=== PATIENT | female | born 1950 | race Caucasian/White ===

== ENCOUNTER → 2018-09-28 12:23 | Outpatient (CLI) | payer MEDICARE, SELFPAY ==
--- NOTE | 2018-09-28 12:30 | BI_ITS ---
MAMMOGRAPHY - BILATERAL SCREENING REASON FOR EXAM: Female, 67 years old. Routine annual screening examination. PERTINENT HISTORY: Non-contributory. Prior right excisional breast biopsy and stereotactic breast biopsy. TECHNIQUE: Digital bilateral breast jurgen (3D mammographic acquisition) in the CC and MLO projections. 2-D mediolateral oblique (MLO) and craniocaudad (CC) views of both breasts were obtained. CAD: Full Field Digital Mammography with Computer Added Detection was performed. COMPARISON: Comparison is made with prior study dated September 08, 2017 and August 19, 2016. FINDINGS: Breast Composition: There are scattered areas of fibroglandular density. There are no dominant masses or suspicious calcifications. A tissue clip marker is seen in the deep upper slightly medial aspect of the right breast. Stable small bilateral axillary lymph nodes. No other significant abnormalities are identified. There has been no significant change since the prior study. BI/SCREENING MAMM (CAD), BILAT IMPRESSION: Stable bilateral screening mammogram. Yearly follow-up mammogram recommended. (A) ASSESSMENT CATEGORY: BIRADS Category 2: Benign. A letter regarding these results will be sent to the patient by the facility within 30 days. Approximately 10% of breast cancers are not detected by mammography. A normal mammogram should not delay biopsy of a clinically suspicious abnormality. [id number] Electronically Signed: Rio Joya MD at 13:24 EST Tel [phone], Service support ,
== END ==
PROVIDERS: Family Provider Nurse Practitioner; PCP Nurse Practitioner; Referring Provider Nurse Practitioner; Visit Provider Nurse Practitioner
DX: Z12.31 Encounter for screening mammogram for malignant neoplasm of breast (principal)
CPT/HCPCS: 77063; 77067

== ENCOUNTER → 2019-03-03 10:58 | Outpatient (CLI) | payer MEDICARE, SELFPAY ==
--- NOTE | 2019-03-03 11:02 | BD_ITS ---
STUDY: DUAL ENERGY X-RAY ABSORPTIOMETRY / DXA REASON FOR EXAM: Female, 68 years old. The patient is postmenopausal. Loss of height. TECHNIQUE: Bone Mineral Density (BMD) measurements of lumbar spine and bilateral hips were obtained. COMPARISON: Comparison is made with prior study dated February 13, 2017. FINDINGS: Lumbar Spine (L1-L4): g/cm2 (1.024) / T-score (-1.3) / Z-score (0.3) Findings are suggestive of osteopenia with a low fracture risk. Left Femur Total: g/cm2 (0.922) / T-score (-0.7) / Z-score (0.7) Left Femoral Neck: g/cm2 (0.858) / T-score (-1.3) / Z-score (0.3) Right Femur Total: g/cm2 (0.918) / T-score (-0.7) / Z-score (0.6) Right Femoral Neck: g/cm2 (0.877) / T-score (-1.2) / Z-score (0.4) The T-Scores on the most recent prior examination were: Lumbar Spine (L1-L4): There has been improvement of bone density since the previous examination. Left Femur Total: which represents a worsening of 3.2%. Right Femur Total: which represents a worsening of 1.5%. BD/Dexa Bone Density Study IMPRESSION: The patient is considered osteopenic as outlined below according to World Carlos Organization (WHO) criteria with a low fracture risk. There has been worsening of bone density since the previous examination. Reference Information: The T-score is the number of standard deviations above or below the standard which is normal for young adults at their peak bone mineral density. The World Health Organization (WHO) interprets the T-scores as follows: Above -1 Normal bone density Between -1 and -2.5 Osteopenia Equal to / or below -2.5 Osteoporosis As a practical clinical guideline, osteopenia may be graded as follows: Mild -1 through -1.5 Moderate -1.6 through -2.0 Severe -2.1 through -2.4 The Z-score is the number of standard deviations above or below age-matched controls. A Z-score of less than -1.5 would be considered abnormal. References: 1. NIH Osteoporosis and Related Bone Diseases http://www.osteo.org 2. International Society for Clinical Densitometry http://www.iscd.org 3. National Osteoporosis Foundation http://www.nof.org Electronically Signed: Rio Joya, at 10:01 EDT , Service support ,
== END ==
PROVIDERS: Family Provider Nurse Practitioner; PCP Nurse Practitioner; Visit Provider Nurse Practitioner
DX: Z78.0 Asymptomatic menopausal state (principal)
CPT/HCPCS: 77080

== ENCOUNTER → 2019-06-23 | Outpatient (CLI) | payer SELFPAY ==
--- NOTE | 2019-06-23 14:40 | CT_ITS ---
STUDY: CARDIAC CALCIUM SCORING - CT CHEST REASON FOR EXAM: Female, 68 years old. Family history of coronary artery disease. RADIATION DOSAGE (If Supplied By Facility): CTDIvol = ( 12.19 ) mGy, DLP = ( 170.66 ) mGycm TECHNIQUE: Axial non-enhanced images were acquired through the heart for the sole purpose of measuring coronary artery calcium. Individualized dose optimization techniques were used for this CT. COMPARISON: None. FINDINGS: Please see the patient's medical record for a personalized calcium score. The visualized lungs are clear. The visualized soft tissues are within normal limits. CT/Limited Chest CT w/CCTA IMPRESSION: Please see the patient's medical record for a persistent less calcium score. Please go to: [email or web address] , for a description of the calculator. Electronically Signed: Tremaine Gilbert, at 16:21 EDT Tel , Service support ,
[2019-06-23 14:53] VITALS: BP 142/81; PULSE 73; RESP 16; O2SAT 98; BMI 25.6
--- NOTE | 2019-06-23 17:28 | CA.SCORE ---
Calcium Scoring Date of Study:: 06/23/19 Coronary Calcium Scoring: High-resolution Computed Tomographic imaging of the chest was performed on 06/23/2019 with particular attention paid to the coronary arteries. Images from the examination were analyzed for the presence and extent of coronary artery calcification , using coronary calcium quantification software. The patient tolerated the procedure well and there were no complications. The results of the coronary calcification analysis are provided below. - Findings Left Main (LM): 0 Left Anterior Descending (LAD): 0 Left Circumflex (LCX): 0 Right Coronary Artery (RCA): 0 Total Agatston Score: 0 Percentile Rankin - Percentile rankin% of people of the same gender/similar age had the same or lower scores - Conclusion Calcium Scoring Interpretation: 0 No identifiable atherosclerotic plaque. Very low cardiovascular disease risk. <5% chance of presence coronary artery disease A Negative Examination 1-10 Minimal Plaque burden. Significant coronary artery disease very unlikely. 11-100 Mild plaque burden. Likely mild or minimal coronary atherosclerosis. 101-400 Moderate plaque burden Moderate non-obstructive coronary artery disease highly likely. Over 400 Extensive plaque burden. High likelihood of at least one significant coronary stenosis (>50% diameter) Calcium Score: 0 Negative Examination - Continue cardiovascular evaluation care as deemed appropriate.
== END | disposition home or self-care (01) ==
LOC: CT 14:35
PROVIDERS: Family Provider Nurse Practitioner; PCP Nurse Practitioner; Referring Provider Nurse Practitioner; Visit Provider Nurse Practitioner
DX: E78.00 Pure hypercholesterolemia, unspecified (principal)
CPT/HCPCS: 75571; 76380

== ENCOUNTER → 2019-08-26 13:00 | Outpatient (CLI) | payer MEDICARE, SELFPAY ==
[2019-06-23 14:53] VITALS: BMI 25.6
--- NOTE | 2019-08-26 13:02 | CT_ITS ---
STUDY: CT FACIAL BONES WITHOUT CONTRAST REASON FOR EXAM: Female, 68 years old. Sinus pressure, half of roof of mouth is numb. RADIATION DOSAGE (If Supplied By Facility): CTDIvol = ( 33.45 ) mGy, DLP = ( 503.71 ) mGycm TECHNIQUE: The patient was scanned in a multi detector CT scanner. Sagittal and coronal images were reconstructed. Individualized dose optimization techniques were used for this CT. COMPARISON: None. FINDINGS: Normal facial soft tissue structures. Incidental note of some atherosclerotic calcific plaquing of the distal internal carotid and vertebral arteries Normal orbital cavazos and orbital contents. Normal nasal bones and anterior nasal spine. There is a non-descended posterior left upper molar. Otherwise, normal facial bones. There is no demonstrated fracture. There is very minimal mucoperiosteal thickening in the inferior margin of the right maxillary sinus. There are multilevel degenerative changes of the visualized upper cervical spine. CT/Sinus/Facial Bone IMPRESSION: 1. Non-descended posterior left upper molar, which is of uncertain clinical significance. 2. Very minimal mucoperiosteal thickening in the inferior right maxillary sinus. 3. Degenerative changes of the cervical spine. Electronically Signed: Ben Santana MD at 17:22 EDT , Service support ,
== END ==
PROVIDERS: Family Provider Nurse Practitioner; PCP Nurse Practitioner; Referring Provider Nurse Practitioner; Visit Provider Nurse Practitioner
DX: J34.89 Other specified disorders of nose and nasal sinuses (principal)
CPT/HCPCS: 70486

== ENCOUNTER 2020-04-27 04:18 | Emergency (ER) | payer MEDICARE, SELFPAY ==
[2019-06-23 14:53] VITALS: BMI 25.6
[2020-04-27 04:19] VITALS: BP 155/97; PULSE 70; RESP 16; TEMP 36.7; O2SAT 98; BMI 27.8
--- NOTE | 2020-04-27 04:30 | RAD_ITS ---
STUDY: X-RAY - UNILATERAL RIBS ( LEFT ) WITH CHEST REASON FOR EXAM: Female, 69 years old. fell -- c/o pain in mid-upper thoracic spine and anterior upper ribs TECHNIQUE - RIBS: 4 view(s) of the ribs. TECHNIQUE - CHEST: Single frontal view of the chest. COMPARISON: 3 chest and left RIBS 01/10/2014. X-ray T-spine done today. FINDINGS - RIBS: Normal visualized ribs without a demonstrated fracture. FINDINGS - CHEST: The lungs are clear and expanded. There is no demonstrated pleural abnormality. Normal size heart. Normal mediastinum and lisa. Normal visualized pulmonary arteries. Normal visualized aortic arch and descending thoracic aorta. There are postsurgical changes in the visualized cervical spine. Normal visualized ribs, clavicles, and shoulders. There is no demonstrated abnormality of the visualized soft tissue structures of the upper abdomen. RAD/Ribs Uni Min 3V w/PA Chest IMPRESSION: RIBS: Normal x-ray examination of the ribs. CHEST: Normal x-ray examination of the chest. Electronically Signed: Fam Sheppard MD at 5:24 EDT , Service support ,
--- NOTE | 2020-04-27 04:31 | RAD_ITS ---
STUDY: X-RAY - THORACIC SPINE REASON FOR EXAM: Female, 69 years old. fell -- c/o pain in mid-upper thoracic spine and anterior upper ribs TECHNIQUE: 3 view(s) of the thoracic spine were obtained. COMPARISON: MRI C-spine 07/21/2014. FINDINGS: There is a very mild wedge-shaped deformity of the T3 vertebral body, of indeterminate age. Normal kyphosis of the thoracic spine. There is no substantial scoliosis. There is mild multilevel endplate spondylosis of the thoracic vertebrae. Normal disc space heights. There is a sclerotic density overlying the T12 vertebral body, which has well-circumscribed margins and probably represents a benign bone island. The soft tissue structures are unremarkable. RAD/Thoracic Spine 3 Views IMPRESSION: Mild wedge-shaped deformity of the T3 vertebral body, not present in 2014, but otherwise of indeterminate age. If there is clinical concern for an acute fracture in this region, CT scan would be suggested for further evaluation. Mild multilevel degenerative changes. Electronically Signed: Fam Sheppard MD at 5:19 EDT , Service support ,
--- NOTE | 2020-04-27 04:31 | ED.VIS.GEN ---
History of Present Illness Chief Complaint: Fall Informant: Patient Narrative: Presents with pain to the left anterior rib cage and middle thoracic back. She fell out of bed just prior to arrival. She did take a ibuprofen at home with minimal relief. She is having pain in the left anterior chest with a slight deformity that she noted where her ribs meet the cartilage. No previous injury like this. She has some mild pain in her back but most of her pain is in the left side of her chest. Current severity is mild to moderate. Hurts to cough and push on it and move. Past Medical History - Allergies and Home Meds Allergies/Adverse Reactions: Allergies Penicillins Allergy (Verified 04/27/20 04:22) Unknown Primary Care Physician: Edie Deutsch NP-C [Primary Care Provider] - Prior records reviewed: Yes Past Medical History: - - Reviewed Surgical History: - - Reviewed Lives: With Family Smoking Status: Former smoker Alcohol: None Drugs: None Review of Systems General: Denies: Chills, Fever, Sweats Eyes: Denies: Visual changes - bilaterally, Diplopia ENT: Denies: Rhinorrhea, Sore throat Cardiovascular: Reports: Chest pain - Chest wall pain left-sided. Denies: Palpitations Respiratory: Denies: Dyspnea, Cough, Dyspnea on exertion Gastrointestinal: Denies: Abdominal pain, Nausea, Vomiting, Diarrhea, Melena, Hematochezia Genitourinary: Denies: Dysuria, Hematuria, Frequency Musculoskeletal: Reports: Back pain. Denies: Extremity Pain Skin: Denies: Rash, Wounds Neurological: Denies: Headache, Weakness, Numbness Physical Exam Vital Signs/Narrative: Vital Signs Temp Pulse Resp BP Pulse Ox 04/27/20 04:19 98.1 F 70 16 155/97 H 98 General: Well nourished, Well developed, No Acute Distress Head: Normocephalic, Atraumatic Eyes: Perrl, EOMI ENT: Moist mucous membranes, No rhinorrhea Neck: Supple, Nontender Cardiovascular: Regular rate, Regular rhythm, No murmurs Respiratory: No distress, CTA bilaterally, Chest tenderness - Chest tenderness in the left anterior rib cage with mild soft tissue swelling. Abdomen: Soft, Nontender, Nondistended, Normal bowel sounds Back: Normal Inspection, - - Tenderness in the mid proximal thoracic spine without deformity. Mild decreased range of motion secondary to pain Extremities: Nontender, No edema Skin: Normal color, No rash Neurological: Alert, Oriented x3, Cranial nerves II-XII grossly intact, Normal Strength, Normal Sensation Psychological: Normal affect, Normal Mood Diagnostic/Tx/Re-eval - Medical Decision Making Patient given a [place] tablet. X-ray of the left ribs with PA chest and thoracic spine obtained. Thoracic spine x-ray shows a age-indeterminate T3 compression fracture. This was verified with CT scan with approximately 20% loss of the superior endplate. Rib x-ray shows nothing acute. At this time I feel the patient likely has a costochondral separation. The patient will be given pain medicine for home. She will follow-up with orthopedics ED Disposition - Plan for ED Patient: Disposition: Home or Assisted Living Diagnosis: Costochondral separation, Thoracic compression fracture Instructions: ED Fx Comp Vertebral Prescriptions: Hydrocodone Bitart/Apap 5-325 [[place] 5MG-325MG] 1 tablet PO Q4H PRN PRN 5 Days #20 tablet PRN Reason: Pain Transmission Status: Sent to [facility] Referrals: Susie Paez DO [STAFF PHYSICIAN] - Additional Instructions: You also have a left-sided costochondral separation. Follow-up as an outpatient with orthopedics and continue pain medicine
[2020-04-27] MEDS: HYDROcodone Bitartrate/Apap 5/325 Tablet PO (04:35)
--- NOTE | 2020-04-27 05:25 | CT_ITS ---
STUDY: CT THORACIC SPINE WITHOUT CONTRAST REASON FOR EXAM: Female, 69 years old. S/P FALL FROM BED THIS AM, C/O LEFT ANTERIOR MID/UPPER CHEST PAIN RADIATION DOSAGE (If Supplied By Facility): CTDIvol = ( 18.45 ) mGy, DLP = ( 609.63 ) mGycm TECHNIQUE: The patient was scanned in a multi detector CT scanner. High resolution imaging was performed. Images were obtained from C6-7 to T12-L1. Sagittal and coronal images were reconstructed. Individualized dose optimization techniques were used for this CT. COMPARISON: X-ray thoracic spine 04/27/2020. MRI cervical spine 07/21/2014. FINDINGS: There are degenerative changes and postsurgical changes in the visualized lower cervical spine. There is a mild wedge-shaped compression fracture deformity of the superior endplate of the T3 vertebral body with 20% loss of anterior vertebral body height. There are areas of cortical discontinuity along the anterior and lateral margins of the vertebral body, and this is likely representing an acute or recent fracture. There is no visualized fracture of the posterior portion of vertebral body or posterior elements suggest instability. Normal kyphosis of the thoracic spine. There is no substantial scoliosis. There is multilevel endplate spondylosis of the thoracic spine. Normal disc spaces heights. There is a 1.1 cm sclerotic density in the T12 vertebral body which has well-circumscribed margins and it is likely represent a benign bone island. The soft tissue structures are unremarkable. CT/Spine Thoracic without Contras IMPRESSION: Acute or recent compression fracture of the superior vertebral endplate of T3, with mild wedge-shaped deformity. Mild multilevel degenerative changes. Electronically Signed: Fam Sheppard MD at 6:11 EDT , Service support ,
[2020-04-27 06:33] VITALS: BP 148/62; PULSE 87; RESP 16; O2SAT 97
== END 2020-04-27 06:34 | disposition home or self-care (01) ==
PROVIDERS: Emergency Provider Emergency Medicine; PCP Nurse Practitioner
DX: M62 Other disorders of muscle (principal); S22.039A Unspecified fracture of third thoracic vertebra, initial encounter for closed fracture; W06.XXXA Fall from bed, initial encounter; Y93.9 Activity, unspecified; Y92.89 Other specified places as the place of occurrence of the external cause; Y99.9 Unspecified external cause status; Z87.891 Personal history of nicotine dependence; Z88.0 Allergy status to penicillin
CPT/HCPCS: 71101; 72072; 72128; 99283

== ENCOUNTER → 2020-06-20 14:10 | Outpatient (CLI) | payer MEDICARE, SELFPAY ==
--- NOTE | 2020-06-20 14:30 | BI_ITS ---
MAMMOGRAPHY - BILATERAL SCREENING REASON FOR EXAM: Female, 69 years old. Routine annual screening examination. PERTINENT HISTORY: Non-contributory. Remote right excisional breast biopsy and right stereotactic breast biopsy. TECHNIQUE: Digital bilateral breast warren (3D mammographic acquisition) in the CC and MLO projections. 2-D mediolateral oblique (MLO) and craniocaudad (CC) views of both breasts were obtained. CAD: Full Field Digital Mammography with Computer Added Detection was performed. COMPARISON: Comparison is made with prior examination dated 09/28/2018 and 09/08/2017. FINDINGS: Breast Composition: There are scattered areas of fibroglandular density. There are no dominant masses or suspicious calcifications. Stable benign appearing bilateral axillary lymph nodes. No other significant abnormalities are identified. There has been no significant change since the prior study. BI/SCREEN MAMM (CAD) W/[place] BILAT IMPRESSION: Stable bilateral screening mammogram. Yearly follow-up mammogram recommended. (A) ASSESSMENT CATEGORY: BIRADS Category 2: Benign. A letter regarding these results will be sent to the patient by the facility within 30 days. Approximately 10% of breast cancers are not detected by mammography. A normal mammogram should not delay biopsy of a clinically suspicious abnormality. [id number] Electronically Signed: Rio Joya, at 15:32 EDT , Service support ,
== END ==
PROVIDERS: PCP Nurse Practitioner; Referring Provider Nurse Practitioner; Visit Provider Nurse Practitioner
DX: Z12.31 Encounter for screening mammogram for malignant neoplasm of breast (principal); Z78.0 Asymptomatic menopausal state
CPT/HCPCS: 77063; 77067

== ENCOUNTER 2021-12-11 11:17 | Outpatient (CLI) | payer MEDICARE, SELFPAY ==
--- NOTE | 2021-12-11 11:34 | US_ITS ---
STUDY: RENAL ULTRASOUND - COMPLETE REASON FOR EXAM: Female, 71 years old. Recurrent UTI. TECHNIQUE: Ultrasound evaluation of the kidneys was performed with real-time and static olivia-scale imaging. COMPARISON: None. FINDINGS: RIGHT KIDNEY: Normal location of the right kidney, which is normal in size. The right kidney measures 10 cm x 4.8 cm x 3.6 cm. There is a normal cortex of the right kidney. The renal cortex measures 1 cm. There is no right renal mass or cyst. There are no right renal calculi. There is an extra-renal pelvis of the right kidney. There is no distention of the renal calyces. DISTAL RIGHT URETER: There is non-visualization of the distal right ureter. There is no demonstrated right ureterovesical junction calculus. There is a visualized right ureteral jet. LEFT KIDNEY: Normal location of the left kidney, which is normal in size. The left kidney measures 9.9 cm x 4.5 cm x 5.3 cm. There is a normal cortex of the left kidney. The renal cortex measures 1.0 cm. There is no left renal mass or cyst. There are no left renal calculi. There is no left hydronephrosis. DISTAL LEFT URETER: There is non-visualization of the distal left ureter. There is no demonstrated left ureterovesical junction calculus. There is a visualized left ureteral jet. BLADDER: The distended urinary bladder has a volume of 86 ml. There is a normal wall thickness of the distended urinary bladder. There is no demonstrated mass within the urinary bladder. There are no demonstrated bladder calculi. US/Kidney and Bladder IMPRESSION: Normal ultrasound of the kidneys and urinary bladder. Electronically Signed: Rio Joya MD at 14:44 EST ,
== END 2021-12-11 23:59 | disposition short-term general hospital (02) ==
LOC: US 11:18
PROVIDERS: PCP Nurse Practitioner; Visit Provider Urology
DX: N39.0 Urinary tract infection, site not specified (principal)
CPT/HCPCS: 76770

== ENCOUNTER 2022-04-25 07:02 | Day surgery (SDC) | payer MEDICARE, SELFPAY ==
[2022-04-25] VITALS (7 sets, daily range): BP systolic 123–144; BP diastolic 61–93; PULSE 81–94; RESP 16–18; TEMP 36.4–37.7; O2SAT 98–99; BMI 28.0
--- NOTE | 2022-04-25 07:41 | OP.PCM_ITS ---
Problems Associated Problem List Diagnoses (1) Urge incontinence: Report of Operation Date of Procedure: 04/25/22 Pre-Operative Diagnosis: Urge incontinence Post-Operative Diagnosis: Same Surgery/Procedure Performed:: Sacral neuromodulation Axonics stage I Surgeon: Mi Rosado Type of Anesthesia: MAC Description of Procedure: The patient is a 71-year-old female with refractory urinary urge incontinence who now presents for stage I trial of neuro sacral modulation with Axonics. Informed Consent Was Obtained. The patient was taken to the operating room and placed in prone position on the operating room table. She was appropriately secured and padded. Anesthesia monitored the head, neck, airway, IV access and vital signs throughout the case. Once anesthesia was appropriately administered the patient was prepped and draped in usual sterile fashion. Using fluoroscopic visualization the anatomy of the sacrum was outlined. The area overlying the S3 foramen was infiltrated with local anesthetic. The needle was then placed into the the right side S3 foramen and good stimulation pattern with jeevan response was achieved. At this time an incision was made in the was dilated and the lead was inserted. There were no impedances and the stimulation patterns remained on all 4 leads, 5 on lead 0, 3.2 on lead 1 and 1.0 on leads 2 and 3. The pocket site was selected and infiltrated with local anesthetic. At this time the lead was tunneled through to the selected pocket site. The lead extension was tunneled to the co ntralateral side using the tunneling device. The incision overlying the lead insertion site and the pocket was closed with Vicryl suture and skin glue. The battery was then secured to the patient using Steri-Strips, an OpSite and cloth tape. She was awakened and taken to the recovery room in good condition. There were no complications during this procedure. Grafts/Implants Used: Axonics lead and lead extension Complications None Admit VTE Documentation VTE Present on Admission: No VTE Mechan Device Prophylaxis: None VTE Pharm Prophylaxis ordered?: No Reason prophylaxis not ordered:: Treatment Not Indicated
--- NOTE | 2022-04-25 07:46 | PCM.DC ---
Discharge Instructions Diet Discharge Diet: No restrictions Activity Discharge Activity: May Not Shower Additional Activity Instructions:: Avoid pushing, pulling, bending Dressing / Incision Call your doctor if your incision/area has: Continuous Slow Oozing, Sudden Increased Bleeding, Increased Pain/ Swelling, Increased Redness, Foul Smelling Discharge and Swelling at the incision site Call your doctor if you observe: Fever of 101 or Higher, Inability to urinate and Inability to have a bowel movement Change Dressing in: do not change dressing Cleanse incision/area with: Do not get Incision Wet and Keep Dressing Clean & Dry Follow Up Care Please Follow Up With: Mi Rosado MD When: In 1 week in the office Test Results: Test results from this visit will be discussed in further detail at your follow-up appointment, if applicable. Discharge Plan Admission Attending Provider: Mi Rosado Primary Care Provider: Edie Deutsch NP Discharge Orders/Prescriptions Prescriptions: New oxycodone-acetaminophen [Percocet] 5-325 mg tablet 1 tab PO Q8H PRN (Reason: pain) 3 Days Qty: 10 RF: 0 cephalexin [cephalexin] 500 MG capsule 500 mg PO Q12 3 Days Qty: 6 RF: 0 Continued aspirin 81 MG tablet,delayed release (DR/EC) 81 mg PO DAILY RF: 0 cyanocobalamin (vitamin B-12) 500 MCG tablet 2,500 mcg SL DAILY@0800 RF: 0 albuterol sulfate 1 PUFF inhaler 2 puff inhalation Q4H PRN PRN (Reason: Sob &/Or Wheezing) RF: 0 cholecalciferol (vitamin D3) 1,000 UNIT tablet 1,000 unit PO DAILY RF: 0 liraglutide 0.6 MG/0.1 ML pen injector 1.2 mg SQ DAILY RF: 0 montelukast [Singulair] 10 mg Tablet 10 mg PO DAILY RF: 0 levocetirizine 5 mg Tablet 5 mg PO DAILY RF: 0 Referrals / Follow Up: Edie Deutsch NP, BACTERIOLOGIST [facility] [Primary Care Provider] - Disposition Disposition (needs filled in before D/C Order can be placed): Home, Self Care
[2022-04-25] MEDS: Vancomycin IV 1,000 MG/200 ML BAG 200 MG IV (08:57)
--- NOTE | 2022-04-25 09:00 | RAD_ITS ---
STUDY: X-RAY - PELVIS REASON FOR EXAM: Female, 71 years old. AXONICS STAGE 1 TECHNIQUE: One view of the pelvis was obtained. COMPARISON: None. FINDINGS: Intraoperative images provided for InterStim placement.. RAD/Pelvis 1 or 2 Views IMPRESSION: Intraoperative imaging provided for InterStim placement. Electronically Signed: Rio Joya MD at 13:16 EDT ,
[2022-04-25] MEDS: Lidocaine 1% /Epi 1:100 (20ml) 20 ML Vial (09:14)
== END 2022-04-30 06:38 | disposition home or self-care (01) ==
LOC: SDC 07:03 → AC 07:04 → ACINP 12:40
PROVIDERS: PCP Nurse Practitioner; Referring Provider Urology; Visit Provider Urology
PROC: (CPT 64581; principal; 2022-04-25 08:50)
DX: N39.41 Urge incontinence (principal); E11.9 Type 2 diabetes mellitus without complications; I10 Essential (primary) hypertension; J45.909 Unspecified asthma, uncomplicated; Z87.440 Personal history of urinary (tract) infections; R35.1 Nocturia
CPT/HCPCS: 64581; 00300; 72170; 76000; C1874; J7120; J2405

== ENCOUNTER 2022-05-09 07:10 | Day surgery (SDC) | payer MEDICARE, SELFPAY ==
[2022-05-09] VITALS (9 sets, daily range): BP systolic 115–148; BP diastolic 74–116; PULSE 71–96; RESP 10–18; TEMP 36.2–36.6; O2SAT 92–100; BMI 27.1
[2022-05-09] MEDS: Lactated Ringers 1,000 ML 15 ML IV (07:44)
[2022-05-09] MEDS: Vancomycin IV 1,000 MG/200 ML BAG 200 MG IV (07:47)
--- NOTE | 2022-05-09 08:47 | PCM.DC ---
Discharge Instructions Diet Discharge Diet: No restrictions Activity Discharge Activity: Return to Normal Activity and May Shower (Tomorrow) May resume sexual activity in: 1 week Dressing / Incision Call your doctor if your incision/area has: Continuous Slow Oozing, Sudden Increased Bleeding, Increased Pain/ Swelling, Increased Redness, Foul Smelling Discharge and Swelling at the incision site Call your doctor if you observe: Fever of 101 or Higher, Inability to urinate and Inability to have a bowel movement Follow Up Care Please Follow Up With: Mi Rosado MD When: 2-3 weeks, call office for appt Test Results: Test results from this visit will be discussed in further detail at your follow-up appointment, if applicable. Discharge Plan Admission Attending Provider: Mi Rosado Primary Care Provider: Edie Deutsch NP Discharge Orders/Prescriptions Prescriptions: New oxycodone-acetaminophen [Percocet] 5-325 mg tablet 1 tab PO Q8H PRN (Reason: pain) 3 Days Qty: 9 0RF cephalexin [cephalexin] 500 mg capsule 500 mg PO Q12 3 Days Qty: 6 0RF Continued aspirin 81 MG tablet,delayed release (DR/EC) 81 mg PO DAILY cyanocobalamin (vitamin B-12) 500 MCG tablet 2,500 mcg SL DAILY@0800 albuterol sulfate 1 PUFF inhaler 2 puff inhalation Q4H PRN PRN (Reason: Sob &/Or Wheezing) cholecalciferol (vitamin D3) 1,000 UNIT tablet 1,000 unit PO DAILY liraglutide 0.6 MG/0.1 ML pen injector 1.2 mg SQ DAILY montelukast [Singulair] 10 mg Tablet 10 mg PO DAILY levocetirizine 5 mg Tablet 5 mg PO DAILY oxycodone-acetaminophen [Percocet] 5-325 mg tablet 1 tab PO Q8H PRN (Reason: pain) 3 Days Qty: 10 0RF cephalexin 500 MG capsule 500 mg PO Q12 3 Days Qty: 6 0RF Referrals / Follow Up: Edie Deutsch NP, [facility] [Primary Care Provider] - Disposition Disposition (needs filled in before D/C Order can be placed): Home, Self Care
--- NOTE | 2022-05-09 08:51 | PCM.OPRPT ---
Problems Associated Problem List Diagnoses (1) Urge incontinence: Report of Operation Date of Procedure: 05/09/22 Pre-Operative Diagnosis: urge incontinence Post-Operative Diagnosis: same Surgery/Procedure Performed:: Axonics Stage 2 Surgeon: Mi Rosado Type of Anesthesia: MAC Description of Procedure: The patient is a 71-year-old female with a successful stage I Axonics trial who now presents for insertion of the battery. Informed consent was obtained. The patient was taken to the operating room placed on the operating room table in a prone position. She was appropriately padded and secured to the table. The dressing and tape were removed from the previous procedure. The external lead extension was grasped with a hemostat and the remainder was cut and discarded. Anesthesia monitored the head, neck, airway, IV access and vital signs throughout the case. Once anesthesia was appropriately administered, the patient was prepped and draped in usual sterile fashion. The area surrounding her incision for the pocket site was infiltrated with 1% lidocaine with epinephrine. Incision was reopened carefully using a knife, hemostats and Metzenbaums. The lead was brought into the operative field and removed from the lead extension which was then removed from the operative field and discarded. The pocket site was enlarged using the knife and Bovie cautery along with blunt dissection. Once hemostasis was achieved, the lead was dried and inserted into the battery and secured using the torque wrench. The battery was then placed into the pocket. Impedances were tested and programming was done. The incision was then closed using 3-0 interrupted Vicryl followed by 4-0 subcuticular closure and Dermabond glue. The patient was then awakened and taken to the recovery room in good condition. There were no complications during this procedure. Grafts/Implants Used: Axonics battery Complications none Admit VTE Documentation VTE Present on Admission: No VTE Mechan Device Prophylaxis: None VTE Pharm Prophylaxis ordered?: No Reason prophylaxis not ordered:: Treatment Not Indicated
[2022-05-09] MEDS: Lidocaine 1% /Epi 1:100 (20ml) 20 ML Vial (10:29)
== END 2022-05-09 12:16 | disposition home or self-care (01) ==
LOC: SDC 07:12 → AC 07:13
PROVIDERS: PCP Nurse Practitioner; Referring Provider Urology; Visit Provider Urology
PROC: (CPT 64590; principal; 2022-05-09 09:00)
DX: N39.41 Urge incontinence (principal); E11.9 Type 2 diabetes mellitus without complications; R35.1 Nocturia; Z87.891 Personal history of nicotine dependence; I10 Essential (primary) hypertension; J45.909 Unspecified asthma, uncomplicated
CPT/HCPCS: 64590; 00300; 95972; J7120; J2405

== ENCOUNTER → 2022-06-04 | Outpatient (CLI) | payer MEDICARE, SELFPAY ==
--- NOTE | 2022-06-04 10:54 | BD_ITS ---
STUDY: DUAL ENERGY X-RAY ABSORPTIOMETRY / DXA REASON FOR EXAM: Female, 71 years old. M85.89. Patient is postmenopausal. TECHNIQUE: Bone Mineral Density (BMD) measurements of lumbar spine and bilateral hips were obtained. COMPARISON: Comparison is made with prior examination dated 03/03/2019. FINDINGS: Lumbar Spine (L1-L4): g/cm2 (0.873) / T-score (-1.9) / Z-score (0.4) Findings are suggestive of osteopenia with a moderate fracture risk. Left Femur Total: g/cm2 (0.858) / T-score (-0.7) / Z-score (0.9) Left Femoral Neck: g/cm2 (0.667) / T-score (-1.6) / Z-score (0.2) Right Femur Total: g/cm2 (0.852) / T-score (-0.7) / Z-score (0.8) Right Femoral Neck: g/cm2 (0.684) / T-score (-1.5) / Z-score (0.4) The T-Scores on the most recent prior examination were: Lumbar Spine (L1-L4): There has been worsening of bone density since the previous examination. Left Femur Total: which represents no significant change. . Right Femur Total: which represents a worsening of 0.3%. BD/Dexa Bone Density Study IMPRESSION: The patient is considered osteopenic as outlined below according to World Carlos Organization (WHO) criteria with a moderate fracture risk. There has been worsening of bone density since the previous examination. Reference Information: The T-score is the number of standard deviations above or below the standard which is normal for young adults at their peak bone mineral density. The World Health Organization (WHO) interprets the T-scores as follows: Above -1 Normal bone density Between -1 and -2.5 Osteopenia Equal to / or below -2.5 Osteoporosis As a practical clinical guideline, osteopenia may be graded as follows: Mild -1 through -1.5 Moderate -1.6 through -2.0 Severe -2.1 through -2.4 The Z-score is the number of standard deviations above or below age-matched controls. A Z-score of less than -1.5 would be considered abnormal. References: 1. NIH Osteoporosis and Related Bone Diseases www osteo.org 2. International Society for Clinical Densitometry www iscd.org 3. National Osteoporosis Foundation www nof.org Electronically Signed: Rio Joya MD at 12:30 EDT ,
== END | disposition home or self-care (01) ==
LOC: OPBD 10:45
PROVIDERS: PCP Nurse Practitioner Family; Referring Provider Nurse Practitioner Family; Visit Provider Nurse Practitioner Family
DX: M85.89 Other specified disorders of bone density and structure, multiple sites (principal); Z78.0 Asymptomatic menopausal state
CPT/HCPCS: 77080

== ENCOUNTER → 2023-05-23 | Outpatient (CLI) | payer MEDICARE, SELFPAY ==
--- NOTE | 2023-05-23 11:54 | BI_ITS ---
MAMMOGRAPHY - BILATERAL SCREENING REASON FOR EXAM: Female, 72 years old. Routine annual screening examination. PERTINENT HISTORY: Non-contributory. Remote right stereotactic and right excisional breast biopsy. TECHNIQUE: Digital bilateral breast warren (3D mammographic acquisition) in the CC and MLO projections. 2-D mediolateral oblique (MLO) and craniocaudad (CC) views of both breasts were obtained. CAD: Full Field Digital Mammography with Computer Added Detection was performed. COMPARISON: Comparison is made with prior study June 20, 2020 and September 28, 2018. FINDINGS: Breast Composition: There are scattered areas of fibroglandular density. There are no dominant masses or suspicious calcifications. A tissue clip marker is seen in the upper lateral aspect of the right breast. Stable appearance of the small bilateral axillary lymph nodes. No other significant abnormalities are identified. There has been no significant change since the prior study. BI/SCRN MAMM (CAD)W/WARREN BILAT IMPRESSION: Stable bilateral screening mammogram. Yearly follow-up mammogram recommended. (A) ASSESSMENT CATEGORY: BIRADS Category 2: Benign. A letter regarding these results will be sent to the patient by the facility within 30 days. Approximately 10% of breast cancers are not detected by mammography. A normal mammogram should not delay biopsy of a clinically suspicious abnormality. [id number] Electronically Signed: Rio Joya MD at 13:31 EDT ,
== END | disposition home or self-care (01) ==
LOC: OPBI 11:53
PROVIDERS: PCP Nurse Practitioner Family; Referring Provider Nurse Practitioner Family; Visit Provider Nurse Practitioner Family
DX: Z12.31 Encounter for screening mammogram for malignant neoplasm of breast (principal)
CPT/HCPCS: 77063; 77067

== ENCOUNTER → 2023-11-25 | Outpatient (CLI) | payer MEDICARE, SELFPAY ==
--- NOTE | 2023-11-25 09:29 | RAD_ITS ---
EXAM: XR CHEST, 2 VIEWS CLINICAL INDICATION: cough TECHNIQUE: Frontal and lateral views of the chest. COMPARISON: XR Chest dated 04/27/2020 FINDINGS: LUNGS AND PLEURAL SPACES: Normal. No consolidation or edema. No pneumothorax. No effusion. HEART: Normal heart size. MEDIASTINUM: No mediastinal or hilar mass. BONES/JOINTS: No acute abnormality. RAD/Chest PA and Lateral IMPRESSION: No acute cardiopulmonary abnormality. No interval change. Electronically Signed: Saurabh Morales MD at 12:01 EST ,
== END | disposition home or self-care (01) ==
LOC: RAD 09:29
PROVIDERS: PCP Nurse Practitioner Family; Referring Provider Internal Medicine; Visit Provider Internal Medicine
DX: R05.9 Cough, unspecified (principal)
CPT/HCPCS: 71046

== ENCOUNTER → 2024-06-08 | Outpatient (CLI) | payer MEDICARE, SELFPAY ==
--- NOTE | 2024-06-08 12:35 | BI_ITS ---
MAMMOGRAPHY - BILATERAL SCREENING REASON FOR EXAM: Female, 73 years old. Routine annual screening examination. PERTINENT HISTORY: Non-contributory. TECHNIQUE: Digital bilateral breast warren (3D mammographic acquisition) in the CC and MLO projections. 2-D mediolateral oblique (MLO) and craniocaudad (CC) views of both breasts were obtained. CAD: Full Field Digital Mammography with Computer Added Detection was performed. COMPARISON: Comparison is made with prior study dated May 23, 2023 and June 20, 2020. FINDINGS: Breast Composition: There are scattered areas of fibroglandular density. There are no dominant masses or suspicious calcifications. Stable small benign appearing bilateral axillary lymph nodes. A tissue clip marker is once again seen in the upper lateral aspect of the right breast No other significant abnormalities are identified. There has been no significant change since the prior study. BI/SCRN MAMM (CAD)W/WARREN BILAT IMPRESSION: Stable bilateral screening mammogram. Yearly follow-up mammogram recommended. (A) ASSESSMENT CATEGORY: BIRADS Category 2: Benign. A letter regarding these results will be sent to the patient by the facility within 30 days. Approximately 10% of breast cancers are not detected by mammography. A normal mammogram should not delay biopsy of a clinically suspicious abnormality. [id number] Electronically Signed: Rio Joya MD at 13:42 EDT ,
--- NOTE | 2024-06-08 12:37 | BD_ITS ---
STUDY: DUAL ENERGY X-RAY ABSORPTIOMETRY / DXA REASON FOR EXAM: Female, 73 years old. [id number] TECHNIQUE: Bone Mineral Density (BMD) measurements of lumbar spine and bilateral hips were obtained. COMPARISON: Comparison is made with prior study dated June 04, 2022. FINDINGS: Lumbar Spine (L1-L4): g/cm2 (0.878) / T-score (-1.5) / Z-score (0.8) Findings are suggestive of osteopenia with a low fracture risk. Left Femur Total: g/cm2 (0.862) / T-score (-0.7) / Z-score (1.0) Left Femoral Neck: g/cm2 (0.685) / T-score (-1.5) / Z-score (0.5) Right Femur Total: g/cm2 (0.839) / T-score (-0.8) / Z-score (0.9) Right Femoral Neck: g/cm2 (0.677) / T-score (-1.5) / Z-score (0.4) The T-Scores on the most recent prior examination were: Lumbar Spine (L1-L4): There has been worsening of bone density since the previous examination. Left Femur Total: which represents an improvement of 0.4%. Right Femur Total: which represents a worsening of 1.5%. BD/Dexa Bone Density Study IMPRESSION: The patient is considered osteopenic as outlined below according to World Carlos Organization (WHO) criteria with a low fracture risk. There has been worsening of bone density since the previous examination. Reference Information: The T-score is the number of standard deviations above or below the standard which is normal for young adults at their peak bone mineral density. The World Health Organization (WHO) interprets the T-scores as follows: Above -1 Normal bone density Between -1 and -2.5 Osteopenia Equal to / or below -2.5 Osteoporosis As a practical clinical guideline, osteopenia may be graded as follows: Mild -1 through -1.5 Moderate -1.6 through -2.0 Severe -2.1 through -2.4 The Z-score is the number of standard deviations above or below age-matched controls. A Z-score of less than -1.5 would be considered abnormal. References: 1. NIH Osteoporosis and Related Bone Diseases www osteo.org 2. International Society for Clinical Densitometry www iscd.org 3. National Osteoporosis Foundation www nof.org Electronically Signed: Rio Joya MD at 13:40 EDT ,
== END | disposition home or self-care (01) ==
LOC: OPBD 12:34
PROVIDERS: PCP Nurse Practitioner Family; Referring Provider Nurse Practitioner Family; Visit Provider Nurse Practitioner Family
DX: Z12.31 Encounter for screening mammogram for malignant neoplasm of breast (principal); Z78.0 Asymptomatic menopausal state
CPT/HCPCS: 77063; 77067; 77080

== ENCOUNTER → 2025-05-03 | Outpatient (CLI) | payer MEDICARE, SELFPAY ==
[2025-05-03 14:56] LABS: Anion Gap 12 (5-15); BUN 16 mg/dL (4-19); BUN/Creat Ratio 17.7 RATIO (10-20); Calcium,Total 9.2 mg/dL (7.6-11.0); Chloride 104 mmol/L (98-108); Creatinine, Serum 0.92 mg/dL (0.70-1.20); EST Glomerular Filtration Rate 66 (>60); Glucose 107 mg/dL (70-99); Potassium 3.7 mmol/L (3.3-5.1); Sodium Level 142 mmol/L (133-145)
== END | disposition home or self-care (01) ==
LOC: LAB 12:40
PROVIDERS: PCP Nurse Practitioner Family; Referring Provider Urology; Visit Provider Urology
DX: R35.1 Nocturia (principal)
CPT/HCPCS: 36415; 80048

== ENCOUNTER → 2025-06-09 | Outpatient (CLI) | payer MEDICARE, SELFPAY ==
--- NOTE | 2025-06-09 11:56 | BI_ITS ---
EXAM: SCRN MAMM (CAD)W/WARREN BILAT DATE: 06/09/2025 CLINICAL HISTORY: F, Age 74 y/o , SCRN MAMM (CAD)W/WARREN BILAT TECHNIQUE: SCRN MAMM (CAD)W/WARREN BILAT COMPARISON: Prior exam(s) were compared FINDINGS: TISSUE DENSITY: The breasts are heterogeneously dense, which may obscure small masses. Bilateral Breast Mammographic Findings: No suspicious masses, calcifications or other abnormalities are identified. BI/SCRN MAMM (CAD)W/WARREN BILAT IMPRESSION: No mammographic evidence of malignancy in either breast. OVERALL FINAL ASSESSMENT BI-RADS 1: NEGATIVE. RECOMMENDATION: Routine annual follow-up in 1 Year A letter with findings and recommendations will be mailed to the patient. Reading Location: [id number]
== END | disposition home or self-care (01) ==
LOC: OPBI 11:54
PROVIDERS: PCP Nurse Practitioner Family; Referring Provider Nurse Practitioner Family; Visit Provider Nurse Practitioner Family
DX: Z12.31 Encounter for screening mammogram for malignant neoplasm of breast (principal)
CPT/HCPCS: 77063; 77067

== ENCOUNTER → 2025-11-07 | Outpatient (CLI) | payer MEDICARE, SELFPAY ==
[2025-11-07 16:54] LABS: Hematocrit 49.2 % (37-47); Hemoglobin 15.7 g/dL (12.0-15.0); Immature Granulocytes Count 0.030 X10^3/uL (0.0-0.0); Mean Corp Hgb Conc 31.9 g/dL (32-36); Mean Corpuscular Volume 91.3 fL (81-99); Mean Platelet Vol. 11.0 fl (6.2-12.0); NRBC Flagged by Analyzer 0 % (0-5); Platelet Count 279 K/mm3 (150-450); RBC Distribution Width CV 13.6 % (11.6-14.6); RBC Distribution Width SD 45.3 fl (35.1-43.9); Red Blood Count 5.39 M/mm3 (4.2-5.4); White Blood Count 6.9 K/mm3 (4.4-11.0)
[2025-11-07 17:24] LABS: Creatinine, Urine (random) 124.00 mg/dL (28.00-217.00); Microalbumin,Random Urine < 12.0 mg/L (<20 mg/L)
[2025-11-07 17:40] LABS: AST(SGOT) 27 U/L (<=31); Alanine Aminotransfer ALT/SGPT 36 U/L (<=34); Albumin, Serum 4.6 g/dL (3.4-4.8); Alkaline Phosphatase 87 U/L (35-104); Anion Gap 12 (7-18); BUN 17 mg/dL (4-19); BUN/Creat Ratio 18.6 RATIO (10-20); Bilirubin, Direct 0.19 mg/dL (0.00-0.30); Calcium,Total 10.1 mg/dL (7.6-11.0); Carbon Dioxide 25.7 mmol/L (20.0-29.0); Chloride 104 mmol/L (96-106); Cholesterol 259 mg/dL (<=200); Globulin 2.8 g/dL (2.2-4.2); Glucose 99 mg/dL (70-99); Potassium 4.4 mmol/L (3.5-5.1); Triglycerides 112 mg/dL
[2025-11-07 17:41] LABS: Low Density Lipoprotein Calc. 172 mg/dL; Very Low Density Lipoprotein 22 mg/dL (5-40); Vitamin D,25 Hydroxy 66.3 ng/mL (30-100); cholesterol:hdl ratio screen 3.82
== END | disposition home or self-care (01) ==
LOC: VSLAB 11:45
PROVIDERS: PCP Nurse Practitioner Family; Referring Provider Nurse Practitioner Family; Visit Provider Nurse Practitioner Family
DX: R73.03 Prediabetes (principal); K76.0 Fatty (change of) liver, not elsewhere classified; E78.5 Hyperlipidemia, unspecified; E55.9 Vitamin D deficiency, unspecified
CPT/HCPCS: 36415; 80048; 80061; 80076; 82043; 82306; 82570; 84443; 85025

== ENCOUNTER → 2025-11-08 | Outpatient (CLI) | payer MEDICARE, SELFPAY ==
[2025-11-08 12:15] LABS: Ionized Calcium Order ORDER TUBE
== END | disposition home or self-care (01) ==
LOC: LAB 11:10
PROVIDERS: PCP Nurse Practitioner Family; Referring Provider Nurse Practitioner Family; Visit Provider Nurse Practitioner Family
DX: R73.03 Prediabetes (principal); K76.0 Fatty (change of) liver, not elsewhere classified; E78.5 Hyperlipidemia, unspecified; E55.9 Vitamin D deficiency, unspecified
CPT/HCPCS: 82330